=== PATIENT | male | born 1960 | race Caucasian/White ===

== ENCOUNTER 2017-04-29 08:40 | Inpatient (IN) | payer OTHER, BC ==
[2017-05-24 08:18] LABS: ADD MAN DIFF? NO
[2017-05-24 08:20] LABS: WHITE BLOOD COUNT 7.3 10^3/ul (4.8-10.8)
[2017-05-24 08:20] LABS: ABNORMAL IP MESSAGE 1; BASOPHILS % 0.4 % (0.0-2.0); EOSINOPHILS # 0.2 10^3/ul (0.0-0.5); EOSINOPHILS % 2.5 % (0.0-7.0); HEMATOCRIT 40.5 % (42.0-52.0); HEMOGLOBIN 13.1 g/dl (14.0-18.0); LYMPHOCYTES # 0.9 10^3/ul (0.8-2.9); LYMPHOCYTES % 12.5 % (15.0-51.0); MEAN CORPUSCULAR HEMOGLOBIN 25.6 pg (29.0-33.0); MEAN CORPUSCULAR HGB CONC 32.3 g/dl (32.0-37.0); MEAN CORPUSCULAR VOLUME 79.1 fl (82.0-101.0); MEAN PLATELET VOLUME 10.4 fl (7.4-10.4); MONOCYTE # 0.8 10^3/ul (0.3-0.9); MONOCYTES % 10.5 % (0.0-11.0); NEUTROPHIL # 5.3 10^3/ul (1.6-7.5); NEUTROPHILS % 73.3 % (39.0-77.0); PLATELET COUNT 101 10^3/UL (140-415); POSITIVE DIFF @See below; RED BLOOD COUNT 5.12 10^6/ul (4.70-6.10); RED CELL DISTRIBUTION WIDTH 17.8 % (11.5-14.5)
[2017-05-24] MEDS ORDERED: CEFAZOLIN 1 GM INJ (08:43)
[2017-05-24] MEDS ORDERED: ROCURONIUM 50 MG INJ ×2 (08:43→14:38)
[2017-05-24] MEDS ORDERED: PROPOFOL 20 ML ×2 (08:43→15:49)
[2017-05-24] MEDS ORDERED: FENTAnyl 50 MCG/ML VIAL ×3 (08:43→13:11)
[2017-05-24 08:44] LABS: ALBUMIN 4.2 g/dl (3.3-4.9); ALKALINE PHOSPHATASE 133 IU/L (42-121); ANION GAP 17 (8-16); ASPARTATE AMINO TRANSFERASE 37 IU/L (15-46); BILIRUBIN,INDIRECT 0.6 mg/dl (0-1.1); BILIRUBIN,TOTAL 0.6 mg/dl (0.2-1.3); CARBON DIOXIDE 28 mmol/L (21-31); CHLORIDE 102 mmol/L (97-110); GLUCOSE 100 mg/dl (70-220); INR 1.02; PROTIME 13.5 Sec (11.9-14.9); PT RATIO 1.1; TOTAL PROTEIN 8.4 g/dl (6.1-8.1)
[2017-05-24] MEDS ORDERED: KETOROLAC 30 MG INJ (08:44)
[2017-05-24] MEDS ORDERED: ONDANSETRON 4 MG INJ (08:44)
[2017-05-24 08:45] LABS: PARTIAL THROMBOPLASTIN TIME 33.1 Sec (25.0-35.0)
[2017-05-24] MEDS ORDERED: SUGAMMADEX SODIUM 200 MG/2 ML VIAL IV (08:45)
[2017-05-24 08:51] LABS: ALANINE AMINOTRANSFERASE 40 IU/L (13-69); BLOOD UREA NITROGEN 18 mg/dl (7-20); CALCIUM 9.2 mg/dl (8.4-10.2); CREATININE 1.01 mg/dl (0.61-1.24); SODIUM 143 mmol/L (135-144)
[2017-05-24] MEDS ORDERED: FENTAnyl 50 MCG/ML VIAL IV ×2 (10:00→17:30)
[2017-05-24] MEDS ORDERED: ACETAMINOPHEN 1000MG/100ML IV 100 ML IVPB (10:00)
[2017-05-24] MEDS ORDERED: HYDROmorphONE (0.2 MG/ML) 10ML SYG IV ×3 (10:00→17:30)
[2017-05-24] MEDS ORDERED: ONDANSETRON 4 MG INJ IV (10:00)
[2017-05-24] MEDS ORDERED: DEXAMETHASONE 4 MG/ML 1 ML INJ (10:39)
[2017-05-24] MEDS ORDERED: HYDROmorphONE 2 MG/ML SYG (11:15)
[2017-05-24] MEDS: BUPIVACAINE 0.25% (MPF) 30 ML INJ (11:43)
[2017-05-24] MEDS: LIDOCAINE 1%/EPI 30 ML INJ (11:44)
[2017-05-24] MEDS: POLYMYXIN/BACITRACIN 1L IRRIG (11:52)
[2017-05-24] MEDS ORDERED: KETAMINE 500 MG INJ (13:37)
[2017-05-24] MEDS: CEFAZOLIN 2 GM/50 ML (PMX) 50 ML IVPB (17:16)
[2017-05-24] MEDS: HYDROmorphONE (0.2 MG/ML) 10ML SYG IV (17:50)
[2017-05-24 18:14] LABS: ADD MAN DIFF? NO
[2017-05-24 18:15] LABS: ABNORMAL IP MESSAGE 1; BASOPHIL # 0.1 10^3/ul (0.0-0.1); BASOPHILS % 0.2 % (0.0-2.0); HEMOGLOBIN 11.9 g/dl (14.0-18.0); LYMPHOCYTES # 0.9 10^3/ul (0.8-2.9); LYMPHOCYTES % 3.9 % (15.0-51.0); MEAN CORPUSCULAR HEMOGLOBIN 25.9 pg (29.0-33.0); MEAN CORPUSCULAR HGB CONC 31.3 g/dl (32.0-37.0); MEAN CORPUSCULAR VOLUME 82.6 fl (82.0-101.0); MEAN PLATELET VOLUME 9.9 fl (7.4-10.4); MONOCYTE # 1.9 10^3/ul (0.3-0.9); NEUTROPHIL # 20.8 10^3/ul (1.6-7.5); NEUTROPHILS % 86.5 % (39.0-77.0); PLATELET COUNT 159 10^3/UL (140-415); POSITIVE DIFF @See below; RED CELL DISTRIBUTION WIDTH 17.8 % (11.5-14.5)
[2017-05-24 18:26] LABS: WHITE BLOOD COUNT 24.1 10^3/ul (4.8-10.8)
[2017-05-24 18:27] LABS: EOSINOPHILS % 0.1 % (0.0-7.0)
[2017-05-24] MEDS ORDERED: HYDROCODONE/APAP (10/325) TAB PO (20:30)
[2017-05-24] MEDS: IBUPROFEN 600 MG TAB PO (20:30)
[2017-05-24] MEDS ORDERED: IBUPROFEN 600 MG TAB PO (21:00)
[2017-05-24] MEDS: SOD CHLORIDE 0.9% 500 ML IV (21:05)
[2017-05-24] MEDS: SOD CHLORIDE 0.9% 1,000 ML IV (21:05)
[2017-05-24 23:11] LABS: ADD MAN DIFF? NO
[2017-05-24 23:12] LABS: ABNORMAL IP MESSAGE 1; BASOPHILS % 0.1 % (0.0-2.0); HEMATOCRIT 32.7 % (42.0-52.0); HEMOGLOBIN 10.2 g/dl (14.0-18.0); LYMPHOCYTES # 0.5 10^3/ul (0.8-2.9); MEAN CORPUSCULAR HEMOGLOBIN 25.6 pg (29.0-33.0); MEAN CORPUSCULAR HGB CONC 31.2 g/dl (32.0-37.0); MEAN CORPUSCULAR VOLUME 82.2 fl (82.0-101.0); MEAN PLATELET VOLUME 10.6 fl (7.4-10.4); MONOCYTE # 1.5 10^3/ul (0.3-0.9); MONOCYTES % 9.3 % (0.0-11.0); NEUTROPHILS % 86.7 % (39.0-77.0); PLATELET COUNT 116 10^3/UL (140-415); POSITIVE DIFF @See below; RED BLOOD COUNT 3.98 10^6/ul (4.70-6.10); RED CELL DISTRIBUTION WIDTH 17.5 % (11.5-14.5)
[2017-05-24 23:12] LABS: WHITE BLOOD COUNT 16.1 10^3/ul (4.8-10.8)
[2017-05-24 23:21] LABS: LYMPHOCYTES % 3.2 % (15.0-51.0)
[2017-05-24] MEDS: HYDROCODONE/APAP (10/325) TAB PO (23:39)
[2017-05-25] MEDS: ONDANSETRON 4 MG INJ IV (01:54)
[2017-05-25] MEDS ORDERED: ONDANSETRON 4 MG INJ IV (02:30)
[2017-05-25] MEDS: HYDROCODONE/APAP (10/325) TAB PO (03:33)
[2017-05-25 06:11] LABS: ADD MAN DIFF? NO
[2017-05-25] MEDS ORDERED: FENTAnyl PATCH 50 MCG/HR TRANSDERM (07:00)
[2017-05-25 07:12] LABS: WHITE BLOOD COUNT 13.1 10^3/ul (4.8-10.8)
[2017-05-25 07:12] LABS: BASOPHILS % 0.1 % (0.0-2.0); HEMATOCRIT 28.8 % (42.0-52.0); LYMPHOCYTES # 0.7 10^3/ul (0.8-2.9); LYMPHOCYTES % 5.4 % (15.0-51.0); MEAN CORPUSCULAR HEMOGLOBIN 25.1 pg (29.0-33.0); MEAN CORPUSCULAR HGB CONC 31.3 g/dl (32.0-37.0); MEAN CORPUSCULAR VOLUME 80.4 fl (82.0-101.0); MEAN PLATELET VOLUME 12.1 fl (7.4-10.4); MONOCYTE # 1.4 10^3/ul (0.3-0.9); MONOCYTES % 10.7 % (0.0-11.0); NEUTROPHIL # 10.9 10^3/ul (1.6-7.5); NEUTROPHILS % 83.2 % (39.0-77.0); PLATELET COUNT 106 10^3/UL (140-415); RED BLOOD COUNT 3.58 10^6/ul (4.70-6.10); RED CELL DISTRIBUTION WIDTH 17.8 % (11.5-14.5)
[2017-05-25] MEDS: GABAPENTIN 100 MG CAP PO (08:40)
[2017-05-25] MEDS: MELOXICAM 15 MG TAB PO (08:40)
[2017-05-25] MEDS: morphine 2 MG INJ IV (08:42)
[2017-05-25] MEDS ORDERED: MELOXICAM 15 MG TAB PO (10:00)
[2017-05-25] MEDS: ATENOLOL 25 MG TAB PO (10:59)
[2017-05-25] MEDS: SPIRONOLACTONE 50 MG TAB PO (10:59)
[2017-05-25] MEDS: FERROUS SULFATE (EC) 325 MG TAB PO (10:59)
[2017-05-25] MEDS: SENNA/DOCUSATE NA (8.6MG/50MG) TAB PO ×2 (10:59→20:19)
[2017-05-25] MEDS: PANTOPRAZOLE (EC) 40 MG TAB PO (11:03)
[2017-05-25 11:21] LABS: ADD MAN DIFF? NO
[2017-05-25 11:23] LABS: WHITE BLOOD COUNT 14.4 10^3/ul (4.8-10.8)
[2017-05-25 11:23] LABS: ABNORMAL IP MESSAGE 1; BASOPHILS % 0.1 % (0.0-2.0); EOSINOPHILS % 0.1 % (0.0-7.0); HEMATOCRIT 28.7 % (42.0-52.0); LYMPHOCYTES % 6.8 % (15.0-51.0); MEAN CORPUSCULAR HEMOGLOBIN 25.4 pg (29.0-33.0); MEAN CORPUSCULAR HGB CONC 31.4 g/dl (32.0-37.0); MEAN CORPUSCULAR VOLUME 80.8 fl (82.0-101.0); MEAN PLATELET VOLUME 10.6 fl (7.4-10.4); MONOCYTE # 1.7 10^3/ul (0.3-0.9); MONOCYTES % 11.8 % (0.0-11.0); NEUTROPHIL # 11.6 10^3/ul (1.6-7.5); NEUTROPHILS % 80.5 % (39.0-77.0); PLATELET COUNT 105 10^3/UL (140-415); POSITIVE DIFF @See below; RED BLOOD COUNT 3.55 10^6/ul (4.70-6.10); RED CELL DISTRIBUTION WIDTH 17.9 % (11.5-14.5)
[2017-05-25] MEDS: oxyCODONE 5 MG TAB PO ×3 (13:27→23:06)
[2017-05-26] MEDS: oxyCODONE 5 MG TAB PO ×5 (03:25→23:40)
[2017-05-26] MEDS: PANTOPRAZOLE (EC) 40 MG TAB PO (05:45)
[2017-05-26 06:41] LABS: ANION GAP 13 (8-16); BLOOD UREA NITROGEN 21 mg/dl (7-20); CALCIUM 8.2 mg/dl (8.4-10.2); CARBON DIOXIDE 27 mmol/L (21-31); CHLORIDE 101 mmol/L (97-110); CREATININE 1.04 mg/dl (0.61-1.24); GLUCOSE 95 mg/dl (70-220); POTASSIUM 4.7 mmol/L (3.5-5.1); SODIUM 136 mmol/L (135-144)
[2017-05-26] MEDS: FERROUS SULFATE (EC) 325 MG TAB PO (08:13)
[2017-05-26] MEDS: SENNA/DOCUSATE NA (8.6MG/50MG) TAB PO ×2 (08:13→20:33)
[2017-05-26] MEDS: GABAPENTIN 100 MG CAP PO ×3 (08:14→20:33)
[2017-05-26] MEDS: SPIRONOLACTONE 50 MG TAB PO ×2 (08:14→18:08)
[2017-05-26] MEDS: MELOXICAM 15 MG TAB PO (08:14)
[2017-05-26] MEDS: ATENOLOL 25 MG TAB PO (08:14)
[2017-05-26] MEDS ORDERED: MELOXICAM 15 MG TAB PO (09:00)
[2017-05-26] MEDS: FUROSEMIDE 40 MG TAB PO ×3 (09:00→18:08)
[2017-05-26] MEDS: SENNA TAB PO (09:39)
[2017-05-26] MEDS: DIPHENHYDRAMINE 25 MG CAP PO ×2 (09:39→20:33)
[2017-05-26] MEDS: AMLODIPINE 5 MG TAB NGT (09:39)
[2017-05-26] MEDS: ASPIRIN (EC) 81 MG TAB PO (09:39)
[2017-05-26] MEDS: PEG/ELECTROLYTES 4L BTL PO (10:56)
[2017-05-26] MEDS: EUCERIN 113 GM CR TOP ×2 (10:57→20:34)
[2017-05-26] MEDS: METHOCARBAMOL 750 MG TAB PO ×2 (13:13→20:33)
[2017-05-27] MEDS: morphine 2 MG INJ IV (02:57)
[2017-05-27] MEDS: PANTOPRAZOLE (EC) 40 MG TAB PO (05:23)
[2017-05-27] MEDS: SPIRONOLACTONE 50 MG TAB PO ×2 (05:23→22:17)
[2017-05-27 06:01] LABS: ADD MAN DIFF? NO
[2017-05-27 06:06] LABS: ABNORMAL IP MESSAGE 1; BASOPHILS % 0.2 % (0.0-2.0); EOSINOPHILS # 0.1 10^3/ul (0.0-0.5); EOSINOPHILS % 0.5 % (0.0-7.0); HEMATOCRIT 23.7 % (42.0-52.0); HEMOGLOBIN 7.5 g/dl (14.0-18.0); LYMPHOCYTES # 1.1 10^3/ul (0.8-2.9); LYMPHOCYTES % 11.3 % (15.0-51.0); MEAN CORPUSCULAR HEMOGLOBIN 25.6 pg (29.0-33.0); MEAN CORPUSCULAR HGB CONC 31.6 g/dl (32.0-37.0); MEAN CORPUSCULAR VOLUME 80.9 fl (82.0-101.0); MEAN PLATELET VOLUME 10.9 fl (7.4-10.4); MONOCYTE # 1.2 10^3/ul (0.3-0.9); MONOCYTES % 12.6 % (0.0-11.0); NEUTROPHIL # 6.9 10^3/ul (1.6-7.5); NEUTROPHILS % 74.5 % (39.0-77.0); PLATELET COUNT 90 10^3/UL (140-415); POSITIVE DIFF @See below; RED BLOOD COUNT 2.93 10^6/ul (4.70-6.10); RED CELL DISTRIBUTION WIDTH 17.6 % (11.5-14.5)
[2017-05-27 06:06] LABS: WHITE BLOOD COUNT 9.3 10^3/ul (4.8-10.8)
[2017-05-27] MEDS: FUROSEMIDE 40 MG TAB PO ×2 (06:24→22:17)
[2017-05-27 06:37] LABS: ANION GAP 13 (8-16); BLOOD UREA NITROGEN 20 mg/dl (7-20); CALCIUM 8.2 mg/dl (8.4-10.2); CARBON DIOXIDE 30 mmol/L (21-31); CHLORIDE 97 mmol/L (97-110); GLUCOSE 106 mg/dl (70-220); POTASSIUM 4.1 mmol/L (3.5-5.1); SODIUM 136 mmol/L (135-144)
[2017-05-27] MEDS: oxyCODONE 5 MG TAB PO ×3 (06:50→18:43)
[2017-05-27 08:38] LABS: IRON 26 ug/dl (35-150)
[2017-05-27 08:48] LABS: % IRON SATURATION 7 % SAT (22-52); TOTAL IRON BINDING CAPACITY 357 ug/dl (241-421)
[2017-05-27 08:53] LABS: INR 1.18; PROTIME 15.2 Sec (11.9-14.9); PT RATIO 1.2
[2017-05-27] MEDS: EUCERIN 113 GM CR TOP ×2 (09:00→21:00)
[2017-05-27] MEDS: MELOXICAM 15 MG TAB PO (10:09)
[2017-05-27] MEDS: ASPIRIN (EC) 81 MG TAB PO (10:10)
[2017-05-27] MEDS: SENNA/DOCUSATE NA (8.6MG/50MG) TAB PO ×2 (10:10→21:09)
[2017-05-27] MEDS: ATENOLOL 25 MG TAB PO (10:10)
[2017-05-27] MEDS: AMLODIPINE 5 MG TAB NGT (10:11)
[2017-05-27] MEDS: METHOCARBAMOL 750 MG TAB PO ×3 (10:11→21:09)
[2017-05-27] MEDS: GABAPENTIN 100 MG CAP PO ×3 (10:11→21:08)
[2017-05-27] MEDS: DIPHENHYDRAMINE 25 MG CAP PO ×2 (10:11→21:00)
[2017-05-27] MEDS: FERROUS SULFATE (EC) 325 MG TAB PO (10:11)
[2017-05-27] MEDS: PHYTONADIONE (1 MG/ML PO SYG) PO (10:14)
[2017-05-27 15:12] LABS: IMMEDIATE SPIN CROSSMATCH 1 2
[2017-05-27] MEDS ORDERED: AMLODIPINE 5 MG TAB PO (16:00)
[2017-05-27] MEDS: morphine LIQ (10 MG/5 ML) CUP PO (21:09)
[2017-05-27 21:13] LABS: ADD MAN DIFF? NO
[2017-05-27 21:16] LABS: WHITE BLOOD COUNT 7.9 10^3/ul (4.8-10.8)
[2017-05-27 21:16] LABS: ABNORMAL IP MESSAGE 1; BASOPHILS % 0.1 % (0.0-2.0); EOSINOPHILS # 0.1 10^3/ul (0.0-0.5); EOSINOPHILS % 1.3 % (0.0-7.0); HEMOGLOBIN 8.4 g/dl (14.0-18.0); LYMPHOCYTES % 12.2 % (15.0-51.0); MEAN CORPUSCULAR HEMOGLOBIN 26.2 pg (29.0-33.0); MEAN CORPUSCULAR HGB CONC 32.3 g/dl (32.0-37.0); MONOCYTES % 12.2 % (0.0-11.0); NEUTROPHIL # 5.8 10^3/ul (1.6-7.5); NEUTROPHILS % 73.2 % (39.0-77.0); PLATELET COUNT 90 10^3/UL (140-415); POSITIVE DIFF @See below; RED BLOOD COUNT 3.21 10^6/ul (4.70-6.10)
[2017-05-27 21:35] LABS: INR 1.18; PROTIME 15.2 Sec (11.9-14.9); PT RATIO 1.2
[2017-05-28] MEDS: DIPHENHYDRAMINE 25 MG CAP PO ×3 (00:25→21:02)
[2017-05-28 03:26] LABS: ADD MAN DIFF? NO
[2017-05-28] MEDS: oxyCODONE 5 MG TAB PO ×4 (03:37→18:59)
[2017-05-28 03:48] LABS: ABNORMAL IP MESSAGE 1; BASOPHILS % 0.2 % (0.0-2.0); EOSINOPHILS # 0.1 10^3/ul (0.0-0.5); EOSINOPHILS % 1.9 % (0.0-7.0); HEMATOCRIT 24.4 % (42.0-52.0); HEMOGLOBIN 8.2 g/dl (14.0-18.0); LYMPHOCYTES # 0.8 10^3/ul (0.8-2.9); LYMPHOCYTES % 14.3 % (15.0-51.0); MEAN CORPUSCULAR HEMOGLOBIN 26.8 pg (29.0-33.0); MEAN CORPUSCULAR HGB CONC 33.6 g/dl (32.0-37.0); MEAN CORPUSCULAR VOLUME 79.7 fl (82.0-101.0); MONOCYTE # 0.7 10^3/ul (0.3-0.9); MONOCYTES % 12.2 % (0.0-11.0); NEUTROPHIL # 4.1 10^3/ul (1.6-7.5); NEUTROPHILS % 70.4 % (39.0-77.0); PLATELET COUNT 80 10^3/UL (140-415); POSITIVE DIFF @See below; RED BLOOD COUNT 3.06 10^6/ul (4.70-6.10); RED CELL DISTRIBUTION WIDTH 17.1 % (11.5-14.5)
[2017-05-28 03:48] LABS: WHITE BLOOD COUNT 5.8 10^3/ul (4.8-10.8)
[2017-05-28 03:54] LABS: ANION GAP 14 (8-16); BLOOD UREA NITROGEN 22 mg/dl (7-20); CARBON DIOXIDE 30 mmol/L (21-31); CHLORIDE 97 mmol/L (97-110); CREATININE 1.09 mg/dl (0.61-1.24); GLUCOSE 109 mg/dl (70-220); POTASSIUM 3.6 mmol/L (3.5-5.1); SODIUM 137 mmol/L (135-144)
[2017-05-28 04:26] LABS: INR 1.15; PROTIME 14.9 Sec (11.9-14.9); PT RATIO 1.2
[2017-05-28] MEDS: SPIRONOLACTONE 50 MG TAB PO ×2 (06:46→17:49)
[2017-05-28] MEDS: FUROSEMIDE 40 MG TAB PO ×2 (06:47→17:53)
[2017-05-28] MEDS: PANTOPRAZOLE (EC) 40 MG TAB PO (06:47)
[2017-05-28 08:42] LABS: ADD MAN DIFF? NO
[2017-05-28 08:46] LABS: WHITE BLOOD COUNT 6.2 10^3/ul (4.8-10.8)
[2017-05-28 08:46] LABS: ABNORMAL IP MESSAGE 1; BASOPHILS % 0.2 % (0.0-2.0); EOSINOPHILS # 0.1 10^3/ul (0.0-0.5); EOSINOPHILS % 1.1 % (0.0-7.0); HEMATOCRIT 26.2 % (42.0-52.0); HEMOGLOBIN 8.6 g/dl (14.0-18.0); LYMPHOCYTES # 0.5 10^3/ul (0.8-2.9); LYMPHOCYTES % 7.2 % (15.0-51.0); MEAN CORPUSCULAR HEMOGLOBIN 26.2 pg (29.0-33.0); MEAN CORPUSCULAR HGB CONC 32.8 g/dl (32.0-37.0); MEAN CORPUSCULAR VOLUME 79.9 fl (82.0-101.0); MEAN PLATELET VOLUME 10.3 fl (7.4-10.4); MONOCYTE # 0.7 10^3/ul (0.3-0.9); MONOCYTES % 11.4 % (0.0-11.0); NEUTROPHIL # 4.9 10^3/ul (1.6-7.5); PLATELET COUNT 92 10^3/UL (140-415); POSITIVE DIFF @See below; RED BLOOD COUNT 3.28 10^6/ul (4.70-6.10); RED CELL DISTRIBUTION WIDTH 17.1 % (11.5-14.5)
[2017-05-28] MEDS: AMLODIPINE 5 MG TAB NGT (08:53)
[2017-05-28] MEDS: FERROUS SULFATE (EC) 325 MG TAB PO (08:53)
[2017-05-28] MEDS: MELOXICAM 15 MG TAB PO (08:54)
[2017-05-28] MEDS: GABAPENTIN 100 MG CAP PO ×3 (08:54→21:02)
[2017-05-28] MEDS: METHOCARBAMOL 750 MG TAB PO ×3 (08:54→21:02)
[2017-05-28] MEDS: ATENOLOL 25 MG TAB PO (08:55)
[2017-05-28] MEDS: ASPIRIN (EC) 81 MG TAB PO (08:56)
[2017-05-28] MEDS: SENNA/DOCUSATE NA (8.6MG/50MG) TAB PO ×2 (08:57→21:02)
[2017-05-28] MEDS: EUCERIN 113 GM CR TOP ×2 (09:00→21:04)
[2017-05-28 09:25] LABS: PROTIME 14.4 Sec (11.9-14.9); PT RATIO 1.1
[2017-05-28] MEDS: morphine LIQ (10 MG/5 ML) CUP PO ×2 (15:28→22:44)
[2017-05-28 16:12] LABS: ADD MAN DIFF? NO
[2017-05-28 16:14] LABS: ABNORMAL IP MESSAGE 1; BASOPHILS % 0.2 % (0.0-2.0); EOSINOPHILS # 0.1 10^3/ul (0.0-0.5); EOSINOPHILS % 2.3 % (0.0-7.0); HEMATOCRIT 25.4 % (42.0-52.0); HEMOGLOBIN 8.4 g/dl (14.0-18.0); LYMPHOCYTES # 0.7 10^3/ul (0.8-2.9); LYMPHOCYTES % 11.7 % (15.0-51.0); MEAN CORPUSCULAR HGB CONC 33.1 g/dl (32.0-37.0); MEAN CORPUSCULAR VOLUME 81.7 fl (82.0-101.0); MEAN PLATELET VOLUME 10.1 fl (7.4-10.4); MONOCYTES % 15.9 % (0.0-11.0); NEUTROPHIL # 4.2 10^3/ul (1.6-7.5); NEUTROPHILS % 68.8 % (39.0-77.0); POSITIVE DIFF @See below; RED BLOOD COUNT 3.11 10^6/ul (4.70-6.10)
[2017-05-28 16:14] LABS: WHITE BLOOD COUNT 6.2 10^3/ul (4.8-10.8)
[2017-05-28 16:16] LABS: PLATELET COUNT 96 10^3/UL (140-415)
[2017-05-28 16:35] LABS: INR 1.19; PROTIME 15.3 Sec (11.9-14.9); PT RATIO 1.2
[2017-05-28 17:15] LABS: PROSTATE SPECIFIC ANTIGEN 0.6 ng/ml (0.0-4.0)
[2017-05-28 21:30] LABS: ADD MAN DIFF? NO
[2017-05-28 21:31] LABS: WHITE BLOOD COUNT 7.8 10^3/ul (4.8-10.8)
[2017-05-28 21:31] LABS: BASOPHILS % 0.1 % (0.0-2.0); EOSINOPHILS # 0.2 10^3/ul (0.0-0.5); EOSINOPHILS % 2.4 % (0.0-7.0); HEMATOCRIT 24.8 % (42.0-52.0); HEMOGLOBIN 8.1 g/dl (14.0-18.0); LYMPHOCYTES # 1.1 10^3/ul (0.8-2.9); LYMPHOCYTES % 13.6 % (15.0-51.0); MEAN CORPUSCULAR HEMOGLOBIN 26.3 pg (29.0-33.0); MEAN CORPUSCULAR HGB CONC 32.7 g/dl (32.0-37.0); MEAN CORPUSCULAR VOLUME 80.5 fl (82.0-101.0); MEAN PLATELET VOLUME 10.1 fl (7.4-10.4); MONOCYTE # 1.1 10^3/ul (0.3-0.9); MONOCYTES % 14.1 % (0.0-11.0); NEUTROPHIL # 5.4 10^3/ul (1.6-7.5); NEUTROPHILS % 68.8 % (39.0-77.0); PLATELET COUNT 107 10^3/UL (140-415); RED BLOOD COUNT 3.08 10^6/ul (4.70-6.10); RED CELL DISTRIBUTION WIDTH 17.2 % (11.5-14.5)
[2017-05-28 21:53] LABS: INR 1.15; PROTIME 14.9 Sec (11.9-14.9); PT RATIO 1.2
[2017-05-29] MEDS: oxyCODONE 5 MG TAB PO ×4 (03:12→20:18)
[2017-05-29] MEDS: PANTOPRAZOLE (EC) 40 MG TAB PO (06:41)
[2017-05-29] MEDS: SPIRONOLACTONE 50 MG TAB PO ×2 (06:41→19:04)
[2017-05-29] MEDS: FUROSEMIDE 40 MG TAB PO ×2 (06:41→19:03)
[2017-05-29 07:51] LABS: ANION GAP 11 (8-16); BLOOD UREA NITROGEN 20 mg/dl (7-20); CALCIUM 8.3 mg/dl (8.4-10.2); CARBON DIOXIDE 31 mmol/L (21-31); CHLORIDE 96 mmol/L (97-110); CREATININE 0.96 mg/dl (0.61-1.24); GLUCOSE 100 mg/dl (70-220); POTASSIUM 3.8 mmol/L (3.5-5.1); SODIUM 134 mmol/L (135-144)
[2017-05-29] MEDS: MELOXICAM 15 MG TAB PO ×3 (08:39→08:45)
[2017-05-29] MEDS: METHOCARBAMOL 750 MG TAB PO ×4 (08:40→20:17)
[2017-05-29] MEDS: FERROUS SULFATE (EC) 325 MG TAB PO (08:41)
[2017-05-29] MEDS: GABAPENTIN 100 MG CAP PO ×3 (08:41→20:17)
[2017-05-29] MEDS: SENNA/DOCUSATE NA (8.6MG/50MG) TAB PO ×2 (08:42→20:17)
[2017-05-29] MEDS: ATENOLOL 25 MG TAB PO (08:42)
[2017-05-29] MEDS: ASPIRIN (EC) 81 MG TAB PO (08:42)
[2017-05-29] MEDS: AMLODIPINE 5 MG TAB NGT (08:43)
[2017-05-29] MEDS: DIPHENHYDRAMINE 25 MG CAP PO ×2 (08:45→20:17)
[2017-05-29] MEDS: EUCERIN 113 GM CR TOP ×2 (08:46→20:19)
[2017-05-29] MEDS: morphine LIQ (10 MG/5 ML) CUP PO (15:35)
[2017-05-30] MEDS: oxyCODONE 5 MG TAB PO ×4 (00:27→13:22)
[2017-05-30] MEDS: PANTOPRAZOLE (EC) 40 MG TAB PO (06:05)
[2017-05-30] MEDS: SPIRONOLACTONE 50 MG TAB PO (06:05)
[2017-05-30] MEDS: FUROSEMIDE 40 MG TAB PO (06:05)
[2017-05-30 06:19] LABS: ADD MAN DIFF? NO
[2017-05-30 06:28] LABS: WHITE BLOOD COUNT 6.6 10^3/ul (4.8-10.8)
[2017-05-30 06:28] LABS: BASOPHILS % 0.3 % (0.0-2.0); EOSINOPHILS # 0.2 10^3/ul (0.0-0.5); EOSINOPHILS % 2.9 % (0.0-7.0); HEMATOCRIT 25.6 % (42.0-52.0); HEMOGLOBIN 8.5 g/dl (14.0-18.0); LYMPHOCYTES # 0.8 10^3/ul (0.8-2.9); LYMPHOCYTES % 11.4 % (15.0-51.0); MEAN CORPUSCULAR HEMOGLOBIN 26.7 pg (29.0-33.0); MEAN CORPUSCULAR HGB CONC 33.2 g/dl (32.0-37.0); MEAN CORPUSCULAR VOLUME 80.5 fl (82.0-101.0); MEAN PLATELET VOLUME 10.7 fl (7.4-10.4); MONOCYTE # 0.9 10^3/ul (0.3-0.9); MONOCYTES % 13.6 % (0.0-11.0); NEUTROPHIL # 4.6 10^3/ul (1.6-7.5); NEUTROPHILS % 69.8 % (39.0-77.0); PLATELET COUNT 113 10^3/UL (140-415); RED BLOOD COUNT 3.18 10^6/ul (4.70-6.10); RED CELL DISTRIBUTION WIDTH 17.4 % (11.5-14.5)
[2017-05-30 06:58] LABS: ANION GAP 12 (8-16); BLOOD UREA NITROGEN 18 mg/dl (7-20); CALCIUM 8.4 mg/dl (8.4-10.2); CARBON DIOXIDE 30 mmol/L (21-31); CHLORIDE 96 mmol/L (97-110); GLUCOSE 117 mg/dl (70-220); POTASSIUM 4.2 mmol/L (3.5-5.1); SODIUM 134 mmol/L (135-144)
[2017-05-30] MEDS: ATENOLOL 25 MG TAB PO (08:15)
[2017-05-30] MEDS: ASPIRIN (EC) 81 MG TAB PO (08:15)
[2017-05-30] MEDS: FERROUS SULFATE (EC) 325 MG TAB PO (08:15)
[2017-05-30] MEDS: AMLODIPINE 5 MG TAB NGT (08:16)
[2017-05-30] MEDS: GABAPENTIN 100 MG CAP PO ×2 (08:16→13:22)
[2017-05-30] MEDS: SENNA/DOCUSATE NA (8.6MG/50MG) TAB PO (08:16)
[2017-05-30] MEDS: EUCERIN 113 GM CR TOP (08:17)
[2017-05-30] MEDS: METHOCARBAMOL 750 MG TAB PO ×2 (08:17→13:23)
[2017-05-30] MEDS: MELOXICAM 15 MG TAB PO (08:20)
[2017-05-30] MEDS: DIPHENHYDRAMINE 25 MG CAP PO (08:20)
[2017-05-30] MEDS: MAGNESIUM HYDROXIDE 30ML CUP PO (13:21)
== END 2017-05-30 13:40 | disposition home or self-care (01) | DRG 940 ==
LOC: SDS 08:40 → REC 05-24 17:35 → MS2 05-24 21:49 → SDS 08:40 → MS2 05-24 18:48 → REC 05-24 18:48 → MS2 05-24 21:49 → SDS 09:28 → REC 05-24 17:35 → SDS 09:28 → MS2 05-24 18:48 → SDS 09:28 → MS2 05-24 21:49
PROC: 0WUF0JZ Supplement Abdominal Wall with Synthetic Substitute, Open Approach (ICD-10-PCS; principal; 2017-05-24 09:30)
PROC: 0YU54JZ Supplement Right Inguinal Region with Synthetic Substitute, Percutaneous Endoscopic Approach (ICD-10-PCS; 2017-05-24 09:30)
PROC: 0YU60JZ Supplement Left Inguinal Region with Synthetic Substitute, Open Approach (ICD-10-PCS; 2017-05-24 09:30)
PROC: 0WUF4JZ Supplement Abdominal Wall with Synthetic Substitute, Percutaneous Endoscopic Approach (ICD-10-PCS; 2017-05-24 09:30)
PROC: 30233N1 Transfusion of Nonautologous Red Blood Cells into Peripheral Vein, Percutaneous Approach (ICD-10-PCS; 2017-05-24 10:20)
DX: G89.18 Other acute postprocedural pain (principal); K91.870 Postprocedural hematoma of a digestive system organ or structure following a digestive system procedure; D62 Acute posthemorrhagic anemia; K40.20 Bilateral inguinal hernia, without obstruction or gangrene, not specified as recurrent; E66.01 Morbid (severe) obesity due to excess calories; K43.9 Ventral hernia without obstruction or gangrene; D64.89 Other specified anemias; K70.31 Alcoholic cirrhosis of liver with ascites; G89.4 Chronic pain syndrome; M79.81 Nontraumatic hematoma of soft tissue; Z68.30 Body mass index [BMI] 30.0-30.9, adult
CPT/HCPCS: 36430; 71045; 74018; 80048; 80053; 82728; 83540; 84153; 84154; 85025; 85610; 85730; 86850; 86900; 86901; 86920; 87086; 93005; 97161; 99217

== ENCOUNTER 2017-06-06 17:05 | Emergency (ER) | payer SELFPAY, OTHER | END 2017-06-06 17:26 | disposition left against medical advice (07) | LOC: E/R 17:05 | DX: Z53.21 Procedure and treatment not carried out due to patient leaving prior to being seen by health care provider (principal) ==

== ENCOUNTER 2017-06-08 22:16 | Inpatient (IN) | payer OTHER ==
[2017-06-08] MEDS ORDERED: morphine 2 MG INJ IV (23:00)
[2017-06-08] MEDS ORDERED: ONDANSETRON 4 MG INJ IV ×2 (23:00→23:30)
[2017-06-08] MEDS: morphine 2 MG INJ IV (23:43)
[2017-06-09 05:37] LABS: ADD MAN DIFF? NO
[2017-06-09 05:44] LABS: BASOPHILS % 0.3 % (0.0-2.0); EOSINOPHILS # 0.1 10^3/ul (0.0-0.5); EOSINOPHILS % 2.1 % (0.0-7.0); HEMATOCRIT 33.3 % (42.0-52.0); HEMOGLOBIN 10.2 g/dl (14.0-18.0); LYMPHOCYTES # 0.8 10^3/ul (0.8-2.9); MEAN CORPUSCULAR HEMOGLOBIN 26.4 pg (29.0-33.0); MEAN CORPUSCULAR HGB CONC 30.6 g/dl (32.0-37.0); MONOCYTE # 0.7 10^3/ul (0.3-0.9); MONOCYTES % 11.7 % (0.0-11.0); NEUTROPHIL # 4.3 10^3/ul (1.6-7.5); NEUTROPHILS % 71.4 % (39.0-77.0); PLATELET COUNT 193 10^3/UL (140-415); RED BLOOD COUNT 3.87 10^6/ul (4.70-6.10); RED CELL DISTRIBUTION WIDTH 17.4 % (11.5-14.5)
[2017-06-09 05:44] LABS: WHITE BLOOD COUNT 6.1 10^3/ul (4.8-10.8)
[2017-06-09] MEDS: morphine 2 MG INJ IV ×2 (05:53→10:13)
[2017-06-09 06:28] LABS: ANION GAP 13 (8-16); BLOOD UREA NITROGEN 17 mg/dl (7-20); CALCIUM 8.2 mg/dl (8.4-10.2); CARBON DIOXIDE 26 mmol/L (21-31); CHLORIDE 104 mmol/L (97-110); CREATININE 0.95 mg/dl (0.61-1.24); GLUCOSE 95 mg/dl (70-220); POTASSIUM 4.1 mmol/L (3.5-5.1); SODIUM 139 mmol/L (135-144)
[2017-06-09] MEDS ORDERED: ENOXAPARIN 30 MG/0.3 ML SYG SC (09:00)
[2017-06-09] MEDS: ENOXAPARIN 30 MG/0.3 ML SYG SC ×2 (09:40→20:30)
[2017-06-09] MEDS: FERROUS SULFATE (EC) 325 MG TAB PO (14:14)
[2017-06-09] MEDS: DOCUSATE SODIUM 100 MG CAP PO ×2 (14:14→20:29)
[2017-06-09] MEDS: HYDROmorphONE 0.5 MG/0.5 ML SYG IV (14:15)
[2017-06-09] MEDS: FUROSEMIDE 40 MG TAB PO (14:15)
[2017-06-09 14:41] LABS: PROTIME 15.4 Sec (11.9-14.9); PT RATIO 1.2
[2017-06-09 14:42] LABS: PARTIAL THROMBOPLASTIN TIME 42.4 Sec (25.0-35.0)
[2017-06-09] MEDS: LIDOCAINE 1% (MDV) 10 ML INJ (18:11)
[2017-06-09] MEDS: OXYCODONE/ACETAMINOPHEN (10/325) TAB PO (18:59)
[2017-06-09] MEDS: SOD CHLORIDE 0.9% 100 ML (21:55)
[2017-06-09] MEDS: IOHEXOL 300MG/ML 150 ML BTL (21:55)
[2017-06-10] MEDS: OXYCODONE/ACETAMINOPHEN (10/325) TAB PO ×4 (00:34→20:28)
[2017-06-10 05:28] LABS: ADD MAN DIFF? NO
[2017-06-10 05:34] LABS: BASOPHILS % 0.2 % (0.0-2.0); EOSINOPHILS # 0.1 10^3/ul (0.0-0.5); EOSINOPHILS % 1.3 % (0.0-7.0); HEMATOCRIT 31.3 % (42.0-52.0); HEMOGLOBIN 9.6 g/dl (14.0-18.0); LYMPHOCYTES # 0.9 10^3/ul (0.8-2.9); LYMPHOCYTES % 16.2 % (15.0-51.0); MEAN CORPUSCULAR HEMOGLOBIN 25.7 pg (29.0-33.0); MEAN CORPUSCULAR HGB CONC 30.7 g/dl (32.0-37.0); MEAN CORPUSCULAR VOLUME 83.9 fl (82.0-101.0); MEAN PLATELET VOLUME 9.3 fl (7.4-10.4); MONOCYTE # 0.8 10^3/ul (0.3-0.9); MONOCYTES % 14.1 % (0.0-11.0); NEUTROPHIL # 3.7 10^3/ul (1.6-7.5); NEUTROPHILS % 67.3 % (39.0-77.0); PLATELET COUNT 169 10^3/UL (140-415); RED BLOOD COUNT 3.73 10^6/ul (4.70-6.10); RED CELL DISTRIBUTION WIDTH 17.2 % (11.5-14.5)
[2017-06-10 05:34] LABS: WHITE BLOOD COUNT 5.5 10^3/ul (4.8-10.8)
[2017-06-10 05:59] LABS: ANION GAP 12 (8-16); BLOOD UREA NITROGEN 15 mg/dl (7-20); CALCIUM 8.3 mg/dl (8.4-10.2); CARBON DIOXIDE 29 mmol/L (21-31); CHLORIDE 102 mmol/L (97-110); CREATININE 0.98 mg/dl (0.61-1.24); GLUCOSE 103 mg/dl (70-220); POTASSIUM 4.5 mmol/L (3.5-5.1); SODIUM 138 mmol/L (135-144)
[2017-06-10] MEDS: PANTOPRAZOLE (EC) 40 MG TAB PO (06:25)
[2017-06-10] MEDS: AMLODIPINE 5 MG TAB PO (09:00)
[2017-06-10] MEDS ORDERED: GABAPENTIN 100 MG CAP PO (09:00)
[2017-06-10] MEDS: ATENOLOL 25 MG TAB PO (09:00)
[2017-06-10] MEDS: FERROUS SULFATE (EC) 325 MG TAB PO (09:21)
[2017-06-10] MEDS: MELOXICAM 15 MG TAB PO (09:22)
[2017-06-10] MEDS: POTASSIUM CHLORIDE (SR) 20 MEQ TAB PO (09:22)
[2017-06-10] MEDS: SPIRONOLACTONE 50 MG TAB PO (09:23)
[2017-06-10] MEDS: DOCUSATE SODIUM 100 MG CAP PO ×2 (09:23→20:28)
[2017-06-10] MEDS: FUROSEMIDE 40 MG TAB PO (09:24)
[2017-06-10] MEDS: ENOXAPARIN 30 MG/0.3 ML SYG SC ×2 (09:25→20:27)
[2017-06-10] MEDS: ASPIRIN (EC) 81 MG TAB PO (09:26)
[2017-06-10] MEDS: GABAPENTIN 100 MG CAP PO (20:28)
[2017-06-10] MEDS: ZOLPIDEM 5 MG TAB PO (21:54)
[2017-06-11] MEDS: PANTOPRAZOLE (EC) 40 MG TAB PO (00:48)
[2017-06-11] MEDS: HYDROmorphONE 0.5 MG/0.5 ML SYG IV ×2 (02:15→09:33)
[2017-06-11 07:05] LABS: ADD MAN DIFF? NO
[2017-06-11 07:09] LABS: BASOPHILS % 0.4 % (0.0-2.0); EOSINOPHILS # 0.1 10^3/ul (0.0-0.5); EOSINOPHILS % 2.3 % (0.0-7.0); HEMATOCRIT 30.8 % (42.0-52.0); HEMOGLOBIN 9.4 g/dl (14.0-18.0); LYMPHOCYTES # 0.7 10^3/ul (0.8-2.9); LYMPHOCYTES % 13.6 % (15.0-51.0); MEAN CORPUSCULAR HEMOGLOBIN 25.5 pg (29.0-33.0); MEAN CORPUSCULAR HGB CONC 30.5 g/dl (32.0-37.0); MEAN CORPUSCULAR VOLUME 83.5 fl (82.0-101.0); MEAN PLATELET VOLUME 9.9 fl (7.4-10.4); MONOCYTE # 0.7 10^3/ul (0.3-0.9); MONOCYTES % 15.2 % (0.0-11.0); NEUTROPHIL # 3.2 10^3/ul (1.6-7.5); NEUTROPHILS % 67.5 % (39.0-77.0); PLATELET COUNT 159 10^3/UL (140-415); RED BLOOD COUNT 3.69 10^6/ul (4.70-6.10); RED CELL DISTRIBUTION WIDTH 16.6 % (11.5-14.5)
[2017-06-11 07:09] LABS: WHITE BLOOD COUNT 4.8 10^3/ul (4.8-10.8)
[2017-06-11 07:34] LABS: ANION GAP 13 (8-16); BLOOD UREA NITROGEN 15 mg/dl (7-20); CALCIUM 8.3 mg/dl (8.4-10.2); CARBON DIOXIDE 28 mmol/L (21-31); CHLORIDE 99 mmol/L (97-110); CREATININE 0.93 mg/dl (0.61-1.24); GLUCOSE 100 mg/dl (70-220); POTASSIUM 4.5 mmol/L (3.5-5.1); SODIUM 135 mmol/L (135-144)
[2017-06-11] MEDS: LIDOCAINE 1% (MDV) 10 ML INJ (10:39)
[2017-06-11] MEDS: ATENOLOL 25 MG TAB PO (11:41)
[2017-06-11] MEDS: DOCUSATE SODIUM 100 MG CAP PO ×2 (11:41→20:47)
[2017-06-11] MEDS: ASPIRIN (EC) 81 MG TAB PO (11:41)
[2017-06-11] MEDS: MELOXICAM 15 MG TAB PO (11:42)
[2017-06-11] MEDS: FUROSEMIDE 40 MG TAB PO (11:42)
[2017-06-11] MEDS: AMLODIPINE 5 MG TAB PO (11:42)
[2017-06-11] MEDS: FERROUS SULFATE (EC) 325 MG TAB PO (11:43)
[2017-06-11] MEDS: SPIRONOLACTONE 50 MG TAB PO (11:43)
[2017-06-11] MEDS: POTASSIUM CHLORIDE (SR) 20 MEQ TAB PO (11:43)
[2017-06-11] MEDS: ENOXAPARIN 30 MG/0.3 ML SYG SC ×2 (11:44→20:49)
[2017-06-11 18:09] LABS: ALANINE AMINOTRANSFERASE 24 IU/L (13-69); ALBUMIN 3.3 g/dl (3.3-4.9); ALBUMIN/GLOBULIN RATIO 0.86; ALKALINE PHOSPHATASE 157 IU/L (42-121); ANION GAP 12 (8-16); ASPARTATE AMINO TRANSFERASE 20 IU/L (15-46); BILIRUBIN,INDIRECT 0.3 mg/dl (0-1.1); BILIRUBIN,TOTAL 0.3 mg/dl (0.2-1.3); BLOOD UREA NITROGEN 16 mg/dl (7-20); CALCIUM 8.7 mg/dl (8.4-10.2); CARBON DIOXIDE 29 mmol/L (21-31); CHLORIDE 99 mmol/L (97-110); CREATININE 1.15 mg/dl (0.61-1.24); GLUCOSE 125 mg/dl (70-220); POTASSIUM 4.4 mmol/L (3.5-5.1); SODIUM 136 mmol/L (135-144); TOTAL PROTEIN 7.1 g/dl (6.1-8.1)
[2017-06-11] MEDS: GABAPENTIN 100 MG CAP PO (20:47)
[2017-06-11] MEDS: OXYCODONE/ACETAMINOPHEN (10/325) TAB PO (20:47)
[2017-06-11] MEDS: ZOLPIDEM 5 MG TAB PO (21:38)
[2017-06-12] MEDS: PANTOPRAZOLE (EC) 40 MG TAB PO (05:44)
[2017-06-12] MEDS: OXYCODONE/ACETAMINOPHEN (10/325) TAB PO ×2 (05:47→18:21)
[2017-06-12 05:57] LABS: ADD MAN DIFF? NO
[2017-06-12 06:05] LABS: BASOPHILS % 0.4 % (0.0-2.0); EOSINOPHILS # 0.1 10^3/ul (0.0-0.5); EOSINOPHILS % 1.4 % (0.0-7.0); HEMATOCRIT 29.6 % (42.0-52.0); HEMOGLOBIN 9.3 g/dl (14.0-18.0); LYMPHOCYTES # 0.7 10^3/ul (0.8-2.9); LYMPHOCYTES % 13.6 % (15.0-51.0); MEAN CORPUSCULAR HGB CONC 31.4 g/dl (32.0-37.0); MEAN CORPUSCULAR VOLUME 82.7 fl (82.0-101.0); MEAN PLATELET VOLUME 9.9 fl (7.4-10.4); MONOCYTE # 0.6 10^3/ul (0.3-0.9); MONOCYTES % 12.8 % (0.0-11.0); NEUTROPHIL # 3.6 10^3/ul (1.6-7.5); NEUTROPHILS % 71.2 % (39.0-77.0); PLATELET COUNT 161 10^3/UL (140-415); RED BLOOD COUNT 3.58 10^6/ul (4.70-6.10); RED CELL DISTRIBUTION WIDTH 16.6 % (11.5-14.5)
[2017-06-12 08:18] LABS: ALANINE AMINOTRANSFERASE 22 IU/L (13-69); ALBUMIN 2.8 g/dl (3.3-4.9); ALKALINE PHOSPHATASE 153 IU/L (42-121); ASPARTATE AMINO TRANSFERASE 20 IU/L (15-46); BILIRUBIN,INDIRECT 0.4 mg/dl (0-1.1); BILIRUBIN,TOTAL 0.4 mg/dl (0.2-1.3); TOTAL PROTEIN 6.3 g/dl (6.1-8.1)
[2017-06-12] MEDS: SPIRONOLACTONE 50 MG TAB PO (08:54)
[2017-06-12] MEDS: POTASSIUM CHLORIDE (SR) 20 MEQ TAB PO (08:54)
[2017-06-12] MEDS: ASPIRIN (EC) 81 MG TAB PO (08:55)
[2017-06-12] MEDS: FUROSEMIDE 40 MG TAB PO (08:55)
[2017-06-12] MEDS: MELOXICAM 15 MG TAB PO (08:55)
[2017-06-12] MEDS: DOCUSATE SODIUM 100 MG CAP PO ×2 (08:55→19:59)
[2017-06-12] MEDS: FERROUS SULFATE (EC) 325 MG TAB PO (08:55)
[2017-06-12] MEDS: ENOXAPARIN 30 MG/0.3 ML SYG SC ×2 (08:59→20:05)
[2017-06-12] MEDS: AMLODIPINE 5 MG TAB PO (14:22)
[2017-06-12] MEDS: ATENOLOL 25 MG TAB PO (14:22)
[2017-06-12] MEDS: ZOLPIDEM 5 MG TAB PO (19:59)
[2017-06-12] MEDS: GABAPENTIN 100 MG CAP PO (19:59)
[2017-06-13] MEDS: OXYCODONE/ACETAMINOPHEN (10/325) TAB PO ×2 (02:09→09:57)
[2017-06-13] MEDS: PANTOPRAZOLE (EC) 40 MG TAB PO (06:27)
[2017-06-13 06:48] LABS: ADD MAN DIFF? NO
[2017-06-13 06:55] LABS: BASOPHILS % 0.4 % (0.0-2.0); EOSINOPHILS # 0.1 10^3/ul (0.0-0.5); EOSINOPHILS % 2.4 % (0.0-7.0); HEMATOCRIT 29.2 % (42.0-52.0); HEMOGLOBIN 9.1 g/dl (14.0-18.0); LYMPHOCYTES # 0.7 10^3/ul (0.8-2.9); MEAN CORPUSCULAR HEMOGLOBIN 25.8 pg (29.0-33.0); MEAN CORPUSCULAR HGB CONC 31.2 g/dl (32.0-37.0); MEAN CORPUSCULAR VOLUME 82.7 fl (82.0-101.0); MEAN PLATELET VOLUME 10.2 fl (7.4-10.4); MONOCYTE # 0.7 10^3/ul (0.3-0.9); MONOCYTES % 14.5 % (0.0-11.0); NEUTROPHIL # 3.1 10^3/ul (1.6-7.5); NEUTROPHILS % 66.1 % (39.0-77.0); PLATELET COUNT 159 10^3/UL (140-415); RED BLOOD COUNT 3.53 10^6/ul (4.70-6.10); RED CELL DISTRIBUTION WIDTH 16.7 % (11.5-14.5)
[2017-06-13 06:55] LABS: WHITE BLOOD COUNT 4.6 10^3/ul (4.8-10.8)
[2017-06-13 07:22] LABS: ANION GAP 12 (8-16); BLOOD UREA NITROGEN 16 mg/dl (7-20); CALCIUM 8.3 mg/dl (8.4-10.2); CARBON DIOXIDE 28 mmol/L (21-31); CHLORIDE 102 mmol/L (97-110); CREATININE 0.99 mg/dl (0.61-1.24); GLUCOSE 100 mg/dl (70-220); POTASSIUM 4.2 mmol/L (3.5-5.1); SODIUM 138 mmol/L (135-144)
[2017-06-13] MEDS: FERROUS SULFATE (EC) 325 MG TAB PO (08:57)
[2017-06-13] MEDS: MELOXICAM 15 MG TAB PO (08:57)
[2017-06-13] MEDS: POTASSIUM CHLORIDE (SR) 20 MEQ TAB PO (08:57)
[2017-06-13] MEDS: SPIRONOLACTONE 50 MG TAB PO (08:57)
[2017-06-13] MEDS: DOCUSATE SODIUM 100 MG CAP PO (08:58)
[2017-06-13] MEDS: ASPIRIN (EC) 81 MG TAB PO (08:58)
[2017-06-13] MEDS: FUROSEMIDE 40 MG TAB PO (08:58)
[2017-06-13] MEDS: AMLODIPINE 5 MG TAB PO (08:58)
[2017-06-13] MEDS: ENOXAPARIN 30 MG/0.3 ML SYG SC (09:00)
[2017-06-13] MEDS: LIDOCAINE 1% (MDV) 10 ML INJ (11:39)
[2017-06-13] MEDS: ATENOLOL 25 MG TAB PO (13:14)
== END 2017-06-13 14:20 | disposition home or self-care (01) | DRG 433 ==
LOC: MS2 22:16
PROC: 0W9G3ZZ Drainage of Peritoneal Cavity, Percutaneous Approach (ICD-10-PCS; principal; 2017-06-09)
PROC: 0Y963ZZ Drainage of Left Inguinal Region, Percutaneous Approach (ICD-10-PCS; 2017-06-11)
PROC: 0Y953ZZ Drainage of Right Inguinal Region, Percutaneous Approach (ICD-10-PCS; 2017-06-11)
PROC: 0Y953ZZ Drainage of Right Inguinal Region, Percutaneous Approach (ICD-10-PCS; 2017-06-13)
PROC: 0Y963ZZ Drainage of Left Inguinal Region, Percutaneous Approach (ICD-10-PCS; 2017-06-13)
DX: K70.31 Alcoholic cirrhosis of liver with ascites (principal); K76.6 Portal hypertension; D64.9 Anemia, unspecified; I10 Essential (primary) hypertension; K80.20 Calculus of gallbladder without cholecystitis without obstruction; G89.4 Chronic pain syndrome; E88.09 Other disorders of plasma-protein metabolism, not elsewhere classified; Z59.0 Homelessness
CPT/HCPCS: 74177; 80048; 80053; 80076; 85025; 85610; 85730

== ENCOUNTER 2017-07-05 19:17 | Inpatient (IN) | payer OTHER ==
[2017-07-05] MEDS: ENOXAPARIN 30 MG/0.3 ML SYG SC (21:00)
[2017-07-05] MEDS ORDERED: ONDANSETRON 4 MG INJ IV (21:00)
[2017-07-05] MEDS ORDERED: VANCOMYCIN IV PER PHARMACY XX (21:30)
[2017-07-05] MEDS: PIPER-TAZO 3.375 GM IV (PMX) 100 ML IVPB (21:34)
[2017-07-05] MEDS: morphine 2 MG INJ IV (21:44)
[2017-07-05] MEDS: VANCOMYCIN 1.5 GM in SOD CHLORIDE 0.9% 250 ML IVPB (22:54)
[2017-07-06] MEDS: PIPER-TAZO 3.375 GM IV (PMX) 100 ML IVPB ×4 (02:10→18:19)
[2017-07-06] MEDS: morphine 2 MG INJ IV ×3 (02:16→22:54)
[2017-07-06 06:09] LABS: ADD MAN DIFF? NO
[2017-07-06 06:11] LABS: BASOPHILS % 0.4 % (0.0-2.0); EOSINOPHILS # 0.5 10^3/ul (0.0-0.5); EOSINOPHILS % 6.4 % (0.0-7.0); HEMATOCRIT 36.2 % (42.0-52.0); HEMOGLOBIN 11.1 g/dl (14.0-18.0); LYMPHOCYTES # 1.1 10^3/ul (0.8-2.9); MEAN CORPUSCULAR HEMOGLOBIN 25.1 pg (29.0-33.0); MEAN CORPUSCULAR HGB CONC 30.7 g/dl (32.0-37.0); MEAN CORPUSCULAR VOLUME 81.7 fl (82.0-101.0); MEAN PLATELET VOLUME 11.1 fl (7.4-10.4); MONOCYTE # 0.7 10^3/ul (0.3-0.9); MONOCYTES % 9.5 % (0.0-11.0); NEUTROPHIL # 4.8 10^3/ul (1.6-7.5); NEUTROPHILS % 67.9 % (39.0-77.0); PLATELET COUNT 167 10^3/UL (140-415); RED BLOOD COUNT 4.43 10^6/ul (4.70-6.10); RED CELL DISTRIBUTION WIDTH 16.6 % (11.5-14.5)
[2017-07-06 06:11] LABS: WHITE BLOOD COUNT 7.1 10^3/ul (4.8-10.8)
[2017-07-06 06:55] LABS: ANION GAP 13 (8-16); BLOOD UREA NITROGEN 20 mg/dl (7-20); CALCIUM 8.8 mg/dl (8.4-10.2); CARBON DIOXIDE 29 mmol/L (21-31); CHLORIDE 100 mmol/L (97-110); CREATININE 1.17 mg/dl (0.61-1.24); GLUCOSE 104 mg/dl (70-220); POTASSIUM 4.3 mmol/L (3.5-5.1); SODIUM 138 mmol/L (135-144)
[2017-07-06] MEDS: VANCOMYCIN 1.5 GM in SOD CHLORIDE 0.9% 250 ML IVPB ×2 (09:53→22:48)
[2017-07-06] MEDS: ENOXAPARIN 30 MG/0.3 ML SYG SC ×2 (09:55→20:48)
[2017-07-06] MEDS: ZOLPIDEM 5 MG TAB PO (20:44)
[2017-07-06 22:39] LABS: VANCOMYCIN,TROUGH 13.1 ug/ml (10.0-20.0)
[2017-07-07] MEDS: PIPER-TAZO 3.375 GM IV (PMX) 100 ML IVPB ×4 (00:50→18:08)
[2017-07-07] MEDS: ENOXAPARIN 30 MG/0.3 ML SYG SC ×2 (08:44→21:00)
[2017-07-07] MEDS: morphine 2 MG INJ IV ×2 (08:48→20:38)
[2017-07-07] MEDS: VANCOMYCIN 1.5 GM in SOD CHLORIDE 0.9% 250 ML IVPB ×2 (10:34→22:51)
[2017-07-07] MEDS: BISACODYL (EC) 5 MG TAB PO (12:59)
[2017-07-08] MEDS: PIPER-TAZO 3.375 GM IV (PMX) 100 ML IVPB ×3 (00:38→12:44)
[2017-07-08] MEDS: morphine 2 MG INJ IV ×3 (01:29→09:24)
[2017-07-08] MEDS: ZOLPIDEM 5 MG TAB PO (01:38)
[2017-07-08 05:47] LABS: ADD MAN DIFF? NO
[2017-07-08 06:01] LABS: BASOPHILS % 0.4 % (0.0-2.0); EOSINOPHILS # 0.4 10^3/ul (0.0-0.5); HEMATOCRIT 33.2 % (42.0-52.0); HEMOGLOBIN 10.1 g/dl (14.0-18.0); LYMPHOCYTES # 0.9 10^3/ul (0.8-2.9); LYMPHOCYTES % 15.6 % (15.0-51.0); MEAN CORPUSCULAR HEMOGLOBIN 24.8 pg (29.0-33.0); MEAN CORPUSCULAR HGB CONC 30.4 g/dl (32.0-37.0); MEAN CORPUSCULAR VOLUME 81.6 fl (82.0-101.0); MEAN PLATELET VOLUME 9.8 fl (7.4-10.4); MONOCYTE # 0.7 10^3/ul (0.3-0.9); MONOCYTES % 12.2 % (0.0-11.0); NEUTROPHIL # 3.5 10^3/ul (1.6-7.5); NEUTROPHILS % 63.1 % (39.0-77.0); PLATELET COUNT 118 10^3/UL (140-415); RED BLOOD COUNT 4.07 10^6/ul (4.70-6.10); RED CELL DISTRIBUTION WIDTH 16.4 % (11.5-14.5)
[2017-07-08 06:01] LABS: WHITE BLOOD COUNT 5.5 10^3/ul (4.8-10.8)
[2017-07-08 06:30] LABS: ANION GAP 12 (8-16); BLOOD UREA NITROGEN 13 mg/dl (7-20); CALCIUM 8.2 mg/dl (8.4-10.2); CARBON DIOXIDE 26 mmol/L (21-31); CHLORIDE 105 mmol/L (97-110); CREATININE 0.98 mg/dl (0.61-1.24); GLUCOSE 104 mg/dl (70-220); POTASSIUM 3.8 mmol/L (3.5-5.1); SODIUM 139 mmol/L (135-144)
[2017-07-08] MEDS: ENOXAPARIN 30 MG/0.3 ML SYG SC (08:47)
[2017-07-08] MEDS: VANCOMYCIN 1.5 GM in SOD CHLORIDE 0.9% 250 ML IVPB (08:55)
[2017-07-08] MEDS: LIDOCAINE 1% (MDV) 10 ML INJ (12:09)
== END 2017-07-08 16:30 | disposition home or self-care (01) | DRG 863 ==
LOC: MS2 19:17
PROC: 0Y953ZZ Drainage of Right Inguinal Region, Percutaneous Approach (ICD-10-PCS; principal; 2017-07-08)
DX: T81.4XXA Infection following a procedure, initial encounter (principal); L03.314 Cellulitis of groin; L03.311 Cellulitis of abdominal wall; N43.2 Other hydrocele; G89.4 Chronic pain syndrome; D64.9 Anemia, unspecified; K70.31 Alcoholic cirrhosis of liver with ascites; I10 Essential (primary) hypertension; Z87.891 Personal history of nicotine dependence; Y83.8 Other surgical procedures as the cause of abnormal reaction of the patient, or of later complication, without mention of misadventure at the time of the procedure
CPT/HCPCS: 76942; 80048; 80202; 85025; 88104; 88305

== ENCOUNTER 2017-07-11 16:40 | Emergency (ER) | payer OTHER | END 2017-07-11 20:18 | disposition left against medical advice (07) | LOC: E/R 16:40 | DX: R18.8 Other ascites (principal); I10 Essential (primary) hypertension; E11.9 Type 2 diabetes mellitus without complications; Z79.84 Long term (current) use of oral hypoglycemic drugs; Z87.891 Personal history of nicotine dependence | CPT/HCPCS: 99282; Z7502 ==

== ENCOUNTER 2017-07-12 13:48 | Emergency (ER) | payer OTHER ==
[2017-07-12 15:57] LABS: INR 1.16; PT RATIO 1.2
[2017-07-12 15:58] LABS: PARTIAL THROMBOPLASTIN TIME 36.5 Sec (25.0-35.0)
[2017-07-12] MEDS: LIDOCAINE 1% (MDV) 10 ML INJ (17:13)
== END 2017-07-12 17:35 | disposition home or self-care (01) ==
LOC: E/R 13:48
DX: K70.31 Alcoholic cirrhosis of liver with ascites (principal); I10 Essential (primary) hypertension; Z79.82 Long term (current) use of aspirin
CPT/HCPCS: 49083; 85610; 85730; 99285-25

== ENCOUNTER 2017-07-25 15:06 | Emergency (ER) | payer OTHER ==
[2017-07-25 15:48] LABS: ADD MAN DIFF? NO
[2017-07-25 15:52] LABS: WHITE BLOOD COUNT 5.7 10^3/ul (4.8-10.8)
[2017-07-25 15:52] LABS: BASOPHILS % 0.5 % (0.0-2.0); EOSINOPHILS # 0.2 10^3/ul (0.0-0.5); EOSINOPHILS % 3.5 % (0.0-7.0); HEMATOCRIT 35.7 % (42.0-52.0); LYMPHOCYTES # 0.8 10^3/ul (0.8-2.9); LYMPHOCYTES % 14.2 % (15.0-51.0); MEAN CORPUSCULAR HEMOGLOBIN 24.8 pg (29.0-33.0); MEAN CORPUSCULAR HGB CONC 30.8 g/dl (32.0-37.0); MEAN CORPUSCULAR VOLUME 80.4 fl (82.0-101.0); MEAN PLATELET VOLUME 9.6 fl (7.4-10.4); MONOCYTE # 0.7 10^3/ul (0.3-0.9); NEUTROPHIL # 3.9 10^3/ul (1.6-7.5); NEUTROPHILS % 68.1 % (39.0-77.0); PLATELET COUNT 135 10^3/UL (140-415); RED BLOOD COUNT 4.44 10^6/ul (4.70-6.10); RED CELL DISTRIBUTION WIDTH 16.7 % (11.5-14.5)
[2017-07-25 16:25] LABS: INR 1.09; PROTIME 14.2 Sec (11.9-14.9); PT RATIO 1.1
[2017-07-25 16:26] LABS: PARTIAL THROMBOPLASTIN TIME 32.6 Sec (25.0-35.0)
[2017-07-25 16:32] LABS: ANION GAP 13 (8-16); BLOOD UREA NITROGEN 19 mg/dl (7-20); CARBON DIOXIDE 28 mmol/L (21-31); CHLORIDE 101 mmol/L (97-110); CREATININE 0.99 mg/dl (0.61-1.24); GLUCOSE 104 mg/dl (70-220); POTASSIUM 4.4 mmol/L (3.5-5.1); SODIUM 138 mmol/L (135-144)
[2017-07-25] MEDS: LIDOCAINE 1% (MDV) 10 ML INJ (17:01)
== END 2017-07-25 18:21 | disposition home or self-care (01) ==
LOC: E/R 18:21
DX: R18.8 Other ascites (principal); I10 Essential (primary) hypertension; R10.9 Unspecified abdominal pain; Z79.82 Long term (current) use of aspirin
CPT/HCPCS: 80048; 85025; 85610; 85730; 99283

== ENCOUNTER 2017-09-09 12:00 | Inpatient (IN) | payer OTHER ==
[2017-09-09] MEDS: FENTAnyl PATCH 12 MCG/HR TRANSDERM (00:20)
[2017-09-09 12:49] LABS: ADD MAN DIFF? NO
[2017-09-09 12:53] LABS: BASOPHILS % 0.5 % (0.0-2.0); EOSINOPHILS # 0.2 10^3/ul (0.0-0.5); EOSINOPHILS % 2.6 % (0.0-7.0); HEMATOCRIT 37.6 % (42.0-52.0); HEMOGLOBIN 11.9 g/dl (14.0-18.0); LYMPHOCYTES # 0.9 10^3/ul (0.8-2.9); MEAN CORPUSCULAR HEMOGLOBIN 25.9 pg (29.0-33.0); MEAN CORPUSCULAR HGB CONC 31.6 g/dl (32.0-37.0); MEAN CORPUSCULAR VOLUME 81.9 fl (82.0-101.0); MONOCYTE # 0.8 10^3/ul (0.3-0.9); MONOCYTES % 11.6 % (0.0-11.0); NEUTROPHIL # 4.7 10^3/ul (1.6-7.5); NEUTROPHILS % 70.7 % (39.0-77.0); PLATELET COUNT 126 10^3/UL (140-415); RED BLOOD COUNT 4.59 10^6/ul (4.70-6.10); RED CELL DISTRIBUTION WIDTH 17.3 % (11.5-14.5)
[2017-09-09 12:53] LABS: WHITE BLOOD COUNT 6.6 10^3/ul (4.8-10.8)
[2017-09-09 13:10] LABS: ANION GAP 19 (8-16); BLOOD UREA NITROGEN 21 mg/dl (7-20); CALCIUM 9.2 mg/dl (8.4-10.2); CARBON DIOXIDE 26 mmol/L (21-31); CHLORIDE 99 mmol/L (97-110); CREATININE 1.22 mg/dl (0.61-1.24); GLUCOSE 119 mg/dl (70-220); SODIUM 140 mmol/L (135-144)
[2017-09-09 13:21] LABS: INR 1.11; PARTIAL THROMBOPLASTIN TIME 32.6 Sec (25.0-35.0); PROTIME 14.5 Sec (11.9-14.9); PT RATIO 1.1
[2017-09-09] MEDS: HYDROCODONE/APAP (10/325) TAB PO (13:37)
[2017-09-09] MEDS: LIDOCAINE 1% (MDV) 10 ML INJ (15:07)
[2017-09-09 15:49] LABS: FLD MN% 93.7 %; FLD PMN% 6.3 %; FLD RBC 2000 /uL; FLD WBC 274 /cmm
[2017-09-09 16:35] LABS: FLD TYPE PARACENTHESIS
[2017-09-09 16:35] LABS: FLD CLARITY SLIGHTLY CLOUDY; FLD COLOR YELLOW
[2017-09-09] MEDS ORDERED: CEFOTAXIME 2 GM/50 ML (PMX) 50 ML IVPB (17:00)
[2017-09-09] MEDS: CEFOTAXIME 2 GM/50 ML (PMX) 50 ML IVPB (17:39)
[2017-09-09] MEDS: VANCOMYCIN 1 GM (PMX) 250 ML IVPB (17:59)
[2017-09-09] MEDS ORDERED: ZOLPIDEM 5 MG TAB PO (18:30)
[2017-09-09] MEDS: morphine 2 MG INJ IV (20:49)
[2017-09-09] MEDS ORDERED: VANCOMYCIN IV PER PHARMACY XX ×2 (21:30→22:30)
[2017-09-09] MEDS: VANCOMYCIN 1 GM 250 ML IVPB (21:50)
[2017-09-09] MEDS: DOCUSATE SODIUM 100 MG CAP PO (21:50)
[2017-09-10] MEDS: CEFTRIAXONE 1 GM/50 ML (PMX) 50 ML IVPB ×2 (00:13→23:39)
[2017-09-10] MEDS: morphine 2 MG INJ IV ×4 (00:45→12:41)
[2017-09-10] MEDS: PANTOPRAZOLE (EC) 40 MG TAB PO (05:15)
[2017-09-10 05:56] LABS: ADD MAN DIFF? NO
[2017-09-10 05:58] LABS: ABNORMAL IP MESSAGE 1; BASOPHILS % 0.4 % (0.0-2.0); EOSINOPHILS # 0.2 10^3/ul (0.0-0.5); HEMATOCRIT 36.4 % (42.0-52.0); HEMOGLOBIN 11.4 g/dl (14.0-18.0); LYMPHOCYTES # 0.6 10^3/ul (0.8-2.9); MEAN CORPUSCULAR HGB CONC 31.3 g/dl (32.0-37.0); MEAN CORPUSCULAR VOLUME 82.9 fl (82.0-101.0); MEAN PLATELET VOLUME 9.8 fl (7.4-10.4); MONOCYTE # 0.6 10^3/ul (0.3-0.9); NEUTROPHIL # 4.2 10^3/ul (1.6-7.5); NEUTROPHILS % 76.1 % (39.0-77.0); PLATELET COUNT 106 10^3/UL (140-415); POSITIVE DIFF @See below; RED BLOOD COUNT 4.39 10^6/ul (4.70-6.10); RED CELL DISTRIBUTION WIDTH 17.4 % (11.5-14.5)
[2017-09-10 05:58] LABS: WHITE BLOOD COUNT 5.6 10^3/ul (4.8-10.8)
[2017-09-10] MEDS ORDERED: PANTOPRAZOLE 40 MG INJ IV (06:00)
[2017-09-10 06:50] LABS: ALANINE AMINOTRANSFERASE 31 IU/L (13-69); ALBUMIN 3.8 g/dl (3.3-4.9); ALBUMIN/GLOBULIN RATIO 0.95; ALKALINE PHOSPHATASE 119 IU/L (42-121); ANION GAP 10 (8-16); ASPARTATE AMINO TRANSFERASE 37 IU/L (15-46); BILIRUBIN,INDIRECT 0.6 mg/dl (0-1.1); BILIRUBIN,TOTAL 0.6 mg/dl (0.2-1.3); BLOOD UREA NITROGEN 22 mg/dl (7-20); CALCIUM 8.7 mg/dl (8.4-10.2); CARBON DIOXIDE 32 mmol/L (21-31); CHLORIDE 99 mmol/L (97-110); CREATININE 0.93 mg/dl (0.61-1.24); GLUCOSE 130 mg/dl (70-220); POTASSIUM 4.2 mmol/L (3.5-5.1); SODIUM 137 mmol/L (135-144); TOTAL PROTEIN 7.8 g/dl (6.1-8.1)
[2017-09-10] MEDS: VANCOMYCIN 1.5 GM in SOD CHLORIDE 0.9% 250 ML IVPB ×2 (08:38→20:18)
[2017-09-10] MEDS: FERROUS SULFATE (EC) 325 MG TAB PO (08:43)
[2017-09-10] MEDS: GABAPENTIN 100 MG CAP PO (08:44)
[2017-09-10] MEDS: DOCUSATE SODIUM 100 MG CAP PO ×2 (08:44→20:18)
[2017-09-10] MEDS: POTASSIUM CHLORIDE (SR) 20 MEQ TAB PO (08:44)
[2017-09-10] MEDS: FISH OIL 1,000 MG CAP PO (08:44)
[2017-09-10] MEDS: FUROSEMIDE 40 MG TAB PO (08:44)
[2017-09-10] MEDS: SPIRONOLACTONE 50 MG TAB PO (08:44)
[2017-09-10] MEDS: ASPIRIN (EC) 81 MG TAB PO (08:44)
[2017-09-10] MEDS: ATENOLOL 25 MG TAB PO (08:45)
[2017-09-10] MEDS: AMLODIPINE 5 MG TAB PO (08:45)
[2017-09-10] MEDS: CYCLOBENZAPRINE 10 MG TAB PO ×3 (13:00→20:18)
[2017-09-10] MEDS: FENTAnyl PATCH 50 MCG/HR TRANSDERM ×2 (15:00→17:23)
[2017-09-11] MEDS: PANTOPRAZOLE (EC) 40 MG TAB PO (05:39)
[2017-09-11 08:27] LABS: VANCOMYCIN,TROUGH 15.4 ug/ml (10.0-20.0)
[2017-09-11] MEDS: VANCOMYCIN 1.5 GM in SOD CHLORIDE 0.9% 250 ML IVPB ×2 (09:08→20:16)
[2017-09-11] MEDS: FISH OIL 1,000 MG CAP PO (09:09)
[2017-09-11] MEDS: POTASSIUM CHLORIDE (SR) 20 MEQ TAB PO (09:09)
[2017-09-11] MEDS: FUROSEMIDE 40 MG TAB PO (09:09)
[2017-09-11] MEDS: ASPIRIN (EC) 81 MG TAB PO (09:09)
[2017-09-11] MEDS: FERROUS SULFATE (EC) 325 MG TAB PO (09:09)
[2017-09-11] MEDS: DOCUSATE SODIUM 100 MG CAP PO ×2 (09:09→20:19)
[2017-09-11] MEDS: CYCLOBENZAPRINE 10 MG TAB PO ×4 (09:09→20:19)
[2017-09-11] MEDS: GABAPENTIN 100 MG CAP PO (09:09)
[2017-09-11] MEDS: SPIRONOLACTONE 50 MG TAB PO (09:10)
[2017-09-11] MEDS: AMLODIPINE 5 MG TAB PO (09:10)
[2017-09-11] MEDS: ATENOLOL 25 MG TAB PO (09:10)
[2017-09-11] MEDS: morphine LIQ (10 MG/5 ML) CUP PO (09:27)
[2017-09-11] MEDS: CEFTRIAXONE 1 GM/50 ML (PMX) 50 ML IVPB (23:12)
[2017-09-12] MEDS: PANTOPRAZOLE (EC) 40 MG TAB PO (05:24)
[2017-09-12 05:57] LABS: ADD MAN DIFF? NO
[2017-09-12 06:07] LABS: WHITE BLOOD COUNT 5.6 10^3/ul (4.8-10.8)
[2017-09-12 06:07] LABS: BASOPHILS % 0.5 % (0.0-2.0); EOSINOPHILS # 0.2 10^3/ul (0.0-0.5); EOSINOPHILS % 3.2 % (0.0-7.0); HEMATOCRIT 37.4 % (42.0-52.0); HEMOGLOBIN 11.6 g/dl (14.0-18.0); LYMPHOCYTES # 0.7 10^3/ul (0.8-2.9); LYMPHOCYTES % 11.9 % (15.0-51.0); MEAN CORPUSCULAR HEMOGLOBIN 25.6 pg (29.0-33.0); MEAN CORPUSCULAR VOLUME 82.6 fl (82.0-101.0); MEAN PLATELET VOLUME 10.4 fl (7.4-10.4); MONOCYTE # 0.8 10^3/ul (0.3-0.9); MONOCYTES % 13.7 % (0.0-11.0); NEUTROPHIL # 3.9 10^3/ul (1.6-7.5); NEUTROPHILS % 69.8 % (39.0-77.0); PLATELET COUNT 121 10^3/UL (140-415); RED BLOOD COUNT 4.53 10^6/ul (4.70-6.10); RED CELL DISTRIBUTION WIDTH 17.2 % (11.5-14.5)
[2017-09-12 06:27] LABS: ANION GAP 11 (8-16); BLOOD UREA NITROGEN 24 mg/dl (7-20); CALCIUM 8.6 mg/dl (8.4-10.2); CARBON DIOXIDE 27 mmol/L (21-31); CHLORIDE 101 mmol/L (97-110); CREATININE 0.95 mg/dl (0.61-1.24); GLUCOSE 105 mg/dl (70-220); POTASSIUM 4.9 mmol/L (3.5-5.1); SODIUM 134 mmol/L (135-144)
[2017-09-12] MEDS: VANCOMYCIN 1.5 GM in SOD CHLORIDE 0.9% 250 ML IVPB (09:12)
[2017-09-12] MEDS: FERROUS SULFATE (EC) 325 MG TAB PO (09:12)
[2017-09-12] MEDS: DOCUSATE SODIUM 100 MG CAP PO ×2 (09:13→20:59)
[2017-09-12] MEDS: SPIRONOLACTONE 50 MG TAB PO (09:13)
[2017-09-12] MEDS: ASPIRIN (EC) 81 MG TAB PO (09:13)
[2017-09-12] MEDS: POTASSIUM CHLORIDE (SR) 20 MEQ TAB PO (09:13)
[2017-09-12] MEDS: ATENOLOL 25 MG TAB PO (09:13)
[2017-09-12] MEDS: FISH OIL 1,000 MG CAP PO (09:13)
[2017-09-12] MEDS: CYCLOBENZAPRINE 10 MG TAB PO ×3 (09:13→21:00)
[2017-09-12] MEDS: AMLODIPINE 5 MG TAB PO (09:14)
[2017-09-12] MEDS: GABAPENTIN 100 MG CAP PO (09:14)
[2017-09-12] MEDS: FUROSEMIDE 40 MG TAB PO (09:14)
[2017-09-12] MEDS: morphine LIQ (10 MG/5 ML) CUP PO ×2 (13:03→18:38)
[2017-09-12] MEDS ORDERED: ENOXAPARIN 40 MG/0.4 ML SYG SC (21:00)
[2017-09-12] MEDS: ENOXAPARIN 100 MG/ML SYG SC (21:04)
[2017-09-12] MEDS: CEFTRIAXONE 1 GM/50 ML (PMX) 50 ML IVPB (21:39)
[2017-09-12] MEDS: VANCOMYCIN 1.25 GM in SOD CHLORIDE 0.9% 250 ML IVPB (22:11)
[2017-09-13] MEDS: morphine LIQ (10 MG/5 ML) CUP PO ×2 (03:59→12:12)
[2017-09-13] MEDS: PANTOPRAZOLE (EC) 40 MG TAB PO (05:39)
[2017-09-13] MEDS: VANCOMYCIN 1.25 GM in SOD CHLORIDE 0.9% 250 ML IVPB ×2 (09:41→21:23)
[2017-09-13] MEDS: FISH OIL 1,000 MG CAP PO (09:47)
[2017-09-13] MEDS: DOCUSATE SODIUM 100 MG CAP PO ×2 (09:47→20:34)
[2017-09-13] MEDS: FERROUS SULFATE (EC) 325 MG TAB PO (09:47)
[2017-09-13] MEDS: GABAPENTIN 100 MG CAP PO (09:47)
[2017-09-13] MEDS: ASPIRIN (EC) 81 MG TAB PO (09:47)
[2017-09-13] MEDS: CYCLOBENZAPRINE 10 MG TAB PO ×3 (09:47→20:34)
[2017-09-13] MEDS: SPIRONOLACTONE 50 MG TAB PO (09:48)
[2017-09-13] MEDS: POTASSIUM CHLORIDE (SR) 20 MEQ TAB PO (09:48)
[2017-09-13] MEDS: FUROSEMIDE 40 MG TAB PO (09:48)
[2017-09-13] MEDS: AMLODIPINE 5 MG TAB PO (09:49)
[2017-09-13] MEDS: ATENOLOL 25 MG TAB PO (09:49)
[2017-09-13] MEDS: ENOXAPARIN 100 MG/ML SYG SC ×2 (09:50→20:35)
[2017-09-13] MEDS: FENTAnyl PATCH 50 MCG/HR TRANSDERM (15:11)
[2017-09-13 17:38] LABS: PROSTATE SPECIFIC ANTIGEN 0.1 ng/ml (0.0-4.0)
[2017-09-13] MEDS: CEFTRIAXONE 1 GM/50 ML (PMX) 50 ML IVPB (20:34)
[2017-09-14] MEDS: morphine LIQ (10 MG/5 ML) CUP PO ×2 (06:04→18:58)
[2017-09-14] MEDS: PANTOPRAZOLE (EC) 40 MG TAB PO (06:04)
[2017-09-14] MEDS: AMLODIPINE 5 MG TAB PO (09:00)
[2017-09-14] MEDS: ATENOLOL 25 MG TAB PO (09:00)
[2017-09-14] MEDS: CYCLOBENZAPRINE 10 MG TAB PO ×3 (09:19→21:29)
[2017-09-14] MEDS: ASPIRIN (EC) 81 MG TAB PO (09:19)
[2017-09-14] MEDS: FISH OIL 1,000 MG CAP PO (09:19)
[2017-09-14] MEDS: GABAPENTIN 100 MG CAP PO (09:19)
[2017-09-14] MEDS: SPIRONOLACTONE 50 MG TAB PO (09:20)
[2017-09-14] MEDS: FUROSEMIDE 40 MG TAB PO (09:20)
[2017-09-14] MEDS: FERROUS SULFATE (EC) 325 MG TAB PO (09:20)
[2017-09-14] MEDS: DOCUSATE SODIUM 100 MG CAP PO ×2 (09:20→21:29)
[2017-09-14] MEDS: POTASSIUM CHLORIDE (SR) 20 MEQ TAB PO (09:20)
[2017-09-14] MEDS: ENOXAPARIN 100 MG/ML SYG SC ×2 (09:21→21:31)
[2017-09-14 09:51] LABS: BLOOD UREA NITROGEN 17 mg/dl (7-20)
[2017-09-14 09:51] LABS: CREATININE 0.96 mg/dl (0.61-1.24)
[2017-09-14 09:56] LABS: VANCOMYCIN,TROUGH 15.4 ug/ml (10.0-20.0)
[2017-09-14] MEDS: VANCOMYCIN 1.25 GM in SOD CHLORIDE 0.9% 250 ML IVPB (10:05)
[2017-09-14] MEDS: CEFTRIAXONE 2 GM/50 ML (PMX) 100 ML IVPB (21:30)
[2017-09-14] MEDS: VANCOMYCIN 1 GM 250 ML IVPB (22:19)
[2017-09-15] MEDS: PANTOPRAZOLE (EC) 40 MG TAB PO (05:39)
[2017-09-15] MEDS: VANCOMYCIN 1 GM 250 ML IVPB ×2 (10:42→22:09)
[2017-09-15] MEDS: ENOXAPARIN 100 MG/ML SYG SC ×2 (10:47→20:49)
[2017-09-15] MEDS: DOCUSATE SODIUM 100 MG CAP PO ×2 (10:54→20:48)
[2017-09-15] MEDS: FERROUS SULFATE (EC) 325 MG TAB PO (10:54)
[2017-09-15] MEDS: SPIRONOLACTONE 50 MG TAB PO (10:54)
[2017-09-15] MEDS: POTASSIUM CHLORIDE (SR) 20 MEQ TAB PO (10:55)
[2017-09-15] MEDS: GABAPENTIN 100 MG CAP PO (10:55)
[2017-09-15] MEDS: CYCLOBENZAPRINE 10 MG TAB PO ×3 (10:55→20:48)
[2017-09-15] MEDS: FISH OIL 1,000 MG CAP PO (10:55)
[2017-09-15] MEDS: ASPIRIN (EC) 81 MG TAB PO (10:55)
[2017-09-15] MEDS: AMLODIPINE 5 MG TAB PO (10:56)
[2017-09-15] MEDS: ATENOLOL 25 MG TAB PO (10:56)
[2017-09-15] MEDS: FUROSEMIDE 40 MG TAB PO (10:56)
[2017-09-15] MEDS: morphine LIQ (10 MG/5 ML) CUP PO (11:19)
[2017-09-15] MEDS: CEFTRIAXONE 2 GM/50 ML (PMX) 100 ML IVPB (21:33)
[2017-09-16] MEDS: PANTOPRAZOLE (EC) 40 MG TAB PO (05:32)
[2017-09-16] MEDS: AMLODIPINE 5 MG TAB PO (09:00)
[2017-09-16] MEDS: ATENOLOL 25 MG TAB PO (09:00)
[2017-09-16] MEDS: DOCUSATE SODIUM 100 MG CAP PO ×2 (09:15→20:07)
[2017-09-16] MEDS: FISH OIL 1,000 MG CAP PO (09:15)
[2017-09-16] MEDS: ENOXAPARIN 100 MG/ML SYG SC ×2 (09:15→20:08)
[2017-09-16] MEDS: GABAPENTIN 100 MG CAP PO (09:16)
[2017-09-16] MEDS: POTASSIUM CHLORIDE (SR) 20 MEQ TAB PO (09:16)
[2017-09-16] MEDS: FUROSEMIDE 40 MG TAB PO (09:16)
[2017-09-16] MEDS: ASPIRIN (EC) 81 MG TAB PO (09:16)
[2017-09-16] MEDS: CYCLOBENZAPRINE 10 MG TAB PO ×3 (09:16→20:07)
[2017-09-16] MEDS: FERROUS SULFATE (EC) 325 MG TAB PO (09:16)
[2017-09-16] MEDS: VANCOMYCIN 1 GM 250 ML IVPB ×2 (11:13→23:45)
[2017-09-16 11:16] LABS: ADD MAN DIFF? NO
[2017-09-16 11:18] LABS: WHITE BLOOD COUNT 4.5 10^3/ul (4.8-10.8)
[2017-09-16 11:18] LABS: BASOPHILS % 0.4 % (0.0-2.0); EOSINOPHILS # 0.2 10^3/ul (0.0-0.5); EOSINOPHILS % 4.4 % (0.0-7.0); HEMOGLOBIN 10.9 g/dl (14.0-18.0); LYMPHOCYTES # 0.8 10^3/ul (0.8-2.9); LYMPHOCYTES % 17.3 % (15.0-51.0); MEAN CORPUSCULAR HEMOGLOBIN 25.6 pg (29.0-33.0); MEAN CORPUSCULAR HGB CONC 31.1 g/dl (32.0-37.0); MEAN CORPUSCULAR VOLUME 82.2 fl (82.0-101.0); MEAN PLATELET VOLUME 9.4 fl (7.4-10.4); MONOCYTE # 0.6 10^3/ul (0.3-0.9); MONOCYTES % 13.1 % (0.0-11.0); NEUTROPHIL # 2.9 10^3/ul (1.6-7.5); PLATELET COUNT 122 10^3/UL (140-415); RED BLOOD COUNT 4.26 10^6/ul (4.70-6.10)
[2017-09-16] MEDS: SPIRONOLACTONE 50 MG TAB PO (13:15)
[2017-09-16] MEDS: morphine LIQ (10 MG/5 ML) CUP PO (15:36)
[2017-09-16] MEDS: FENTAnyl PATCH 50 MCG/HR TRANSDERM (19:03)
[2017-09-16 22:21] LABS: PSA, FREE <0.1 ng/mL
[2017-09-16] MEDS: CEFTRIAXONE 2 GM/50 ML (PMX) 100 ML IVPB (22:38)
[2017-09-17] MEDS: PANTOPRAZOLE (EC) 40 MG TAB PO (06:04)
[2017-09-17 07:06] LABS: CREATININE 0.94 mg/dl (0.61-1.24)
[2017-09-17 07:06] LABS: BLOOD UREA NITROGEN 19 mg/dl (7-20)
[2017-09-17] MEDS: FISH OIL 1,000 MG CAP PO (08:46)
[2017-09-17] MEDS: ENOXAPARIN 100 MG/ML SYG SC ×2 (08:46→20:37)
[2017-09-17] MEDS: POTASSIUM CHLORIDE (SR) 20 MEQ TAB PO (08:47)
[2017-09-17] MEDS: GABAPENTIN 100 MG CAP PO (08:47)
[2017-09-17] MEDS: CYCLOBENZAPRINE 10 MG TAB PO ×3 (08:47→20:35)
[2017-09-17] MEDS: FERROUS SULFATE (EC) 325 MG TAB PO (08:47)
[2017-09-17] MEDS: DOCUSATE SODIUM 100 MG CAP PO ×2 (08:47→20:35)
[2017-09-17] MEDS: FUROSEMIDE 40 MG TAB PO (08:47)
[2017-09-17] MEDS: ASPIRIN (EC) 81 MG TAB PO (08:47)
[2017-09-17] MEDS: SPIRONOLACTONE 50 MG TAB PO (08:47)
[2017-09-17] MEDS: AMLODIPINE 5 MG TAB PO (08:58)
[2017-09-17] MEDS: ATENOLOL 25 MG TAB PO (08:58)
[2017-09-17 09:36] LABS: VANCOMYCIN,TROUGH 12.7 ug/ml (10.0-20.0)
[2017-09-17] MEDS: VANCOMYCIN 1 GM 250 ML IVPB ×2 (10:10→21:23)
[2017-09-17] MEDS: DIPHENHYDRAMINE 25 MG CAP PO (21:46)
[2017-09-17] MEDS: CEFTRIAXONE 2 GM/50 ML (PMX) 100 ML IVPB (23:30)
[2017-09-18] MEDS: PANTOPRAZOLE (EC) 40 MG TAB PO (06:03)
[2017-09-18] MEDS: POTASSIUM CHLORIDE (SR) 20 MEQ TAB PO (08:34)
[2017-09-18] MEDS: CYCLOBENZAPRINE 10 MG TAB PO ×2 (08:34→13:19)
[2017-09-18] MEDS: DOCUSATE SODIUM 100 MG CAP PO (08:34)
[2017-09-18] MEDS: FISH OIL 1,000 MG CAP PO (08:34)
[2017-09-18] MEDS: FERROUS SULFATE (EC) 325 MG TAB PO (08:35)
[2017-09-18] MEDS: SPIRONOLACTONE 50 MG TAB PO (08:35)
[2017-09-18] MEDS: GABAPENTIN 100 MG CAP PO (08:35)
[2017-09-18] MEDS: FUROSEMIDE 40 MG TAB PO (08:35)
[2017-09-18] MEDS: ASPIRIN (EC) 81 MG TAB PO (08:35)
[2017-09-18] MEDS: ENOXAPARIN 100 MG/ML SYG SC (08:38)
[2017-09-18] MEDS: ATENOLOL 25 MG TAB PO (09:00)
[2017-09-18] MEDS: AMLODIPINE 5 MG TAB PO (09:00)
[2017-09-18 09:30] LABS: ADD MAN DIFF? NO
[2017-09-18 09:45] LABS: ABNORMAL IP MESSAGE 1; BASOPHILS % 0.5 % (0.0-2.0); EOSINOPHILS # 0.2 10^3/ul (0.0-0.5); EOSINOPHILS % 4.3 % (0.0-7.0); HEMATOCRIT 35.3 % (42.0-52.0); LYMPHOCYTES # 0.6 10^3/ul (0.8-2.9); LYMPHOCYTES % 15.9 % (15.0-51.0); MEAN CORPUSCULAR HEMOGLOBIN 25.3 pg (29.0-33.0); MEAN CORPUSCULAR HGB CONC 31.2 g/dl (32.0-37.0); MEAN CORPUSCULAR VOLUME 81.1 fl (82.0-101.0); MEAN PLATELET VOLUME 9.6 fl (7.4-10.4); MONOCYTE # 0.6 10^3/ul (0.3-0.9); MONOCYTES % 15.1 % (0.0-11.0); NEUTROPHIL # 2.3 10^3/ul (1.6-7.5); NEUTROPHILS % 62.9 % (39.0-77.0); PLATELET COUNT 111 10^3/UL (140-415); POSITIVE DIFF @See below; RED BLOOD COUNT 4.35 10^6/ul (4.70-6.10); RED CELL DISTRIBUTION WIDTH 17.2 % (11.5-14.5)
[2017-09-18 09:45] LABS: WHITE BLOOD COUNT 3.7 10^3/ul (4.8-10.8)
[2017-09-18 10:05] LABS: ANION GAP 12 (8-16); BLOOD UREA NITROGEN 18 mg/dl (7-20); CALCIUM 8.7 mg/dl (8.4-10.2); CARBON DIOXIDE 26 mmol/L (21-31); CHLORIDE 99 mmol/L (97-110); CREATININE 0.93 mg/dl (0.61-1.24); GLUCOSE 98 mg/dl (70-220); POTASSIUM 4.4 mmol/L (3.5-5.1); SODIUM 133 mmol/L (135-144)
[2017-09-18] MEDS: VANCOMYCIN 1 GM 250 ML IVPB (10:07)
== END 2017-09-18 14:45 | disposition home or self-care (01) | DRG 603 ==
LOC: E/R 12:00 → PP2 17:48
PROC: 0W9G3ZZ Drainage of Peritoneal Cavity, Percutaneous Approach (ICD-10-PCS; principal; 2017-09-09)
DX: L03.115 Cellulitis of right lower limb (principal); K70.31 Alcoholic cirrhosis of liver with ascites; I10 Essential (primary) hypertension; G89.4 Chronic pain syndrome; D69.6 Thrombocytopenia, unspecified; D64.9 Anemia, unspecified; I87.8 Other specified disorders of veins
CPT/HCPCS: 36415; 76705; 80048; 80053; 80202; 82565; 84153; 84154; 84520; 85025; 85610; 85730; 87040; 87070; 87102; 87116; 89051; 93005; 93970; 93971; 96374; 97161; 99285-25

== ENCOUNTER 2018-05-15 11:47 | Emergency (ER) | payer OTHER | END 2018-05-15 15:46 | disposition home or self-care (01) | LOC: E/R 11:47 | DX: F10.10 Alcohol abuse, uncomplicated (principal); I25.10 Atherosclerotic heart disease of native coronary artery without angina pectoris; I10 Essential (primary) hypertension; E66.9 Obesity, unspecified; Z79.82 Long term (current) use of aspirin; Z68.35 Body mass index [BMI] 35.0-35.9, adult | CPT/HCPCS: 99283; Z7502 ==